=== PATIENT | female | born 1995 | race Caucasian/White ===

== ENCOUNTER 2019-08-16 09:55 | Emergency (ER) | payer OTHER ==
[2019-08-16 10:09] VITALS: BP 102/68; PULSE 86; TEMP 98.2; BMI 18.8
--- NOTE | 2019-08-16 11:12 | PDOC ---
History of Present Illness - General Chief Complaint: Nasal Bleeding Stated Complaint: NOSE BLEED Time Seen by Provider: 08/16/19 10:07 Past History - Past Medical History Allergies/Adverse Reactions: Allergies Allergy/AdvReac Type Severity Reaction Status Date / Time No Known Allergies Allergy Verified 08/16/19 10:38 Home Medications: Ambulatory Orders NK [No Known Home Medication] 08/16/19 Asthma: No Cancer: No Cardiac Disorders: No COPD: No Diabetes: No HTN: No Seizures: No Thyroid Disease: No - Immunization History Immunization Up to Date: Yes - Psycho Social/Smoking Cessation Hx Smoking History: Never smoked Have you smoked in the past 12 months: No Information on smoking cessation initiated: No Hx Alcohol Use: No Drug/Substance Use Hx: No Substance Use Type: None Hx Substance Use Treatment: No *Physical Exam - Vital Signs Last Vital Signs Temp Pulse Resp BP Pulse Ox 98.2 F 86 18 102/68 97 08/16/19 10:05 08/16/19 10:05 08/16/19 10:05 08/16/19 10:05 08/16/19 10:05 Discharge - Discharge Information Problems reviewed: Yes Clinical Impression/Diagnosis: Nasal bleeding Condition: Good Disposition: HOME - Admission No - Follow up/Referral Referrals: Jesus Brenner II, DO [Primary Care Provider] - Reynaldo Treviño MD [Staff Physician] - Mark Patterson MD [Staff Physician] - - Patient Discharge Instructions Patient Printed Discharge Instructions: DI for Nosebleed Additional Instructions: Hoy te vieron en la julien de emergencias por sangrado de nariz. No est sangrando activamente en lillian momento. Recomiendo hacer un seguimiento con un otorrinolaringlogo. La informacin se proporciona a continuacin. Pellizque cook nariz muy alma carolyn 5-10 minutos si tiene la hemorragia nasal. Regrese a la julien de emergencias si tiene sangrado abundante, est usando marni caja completa de pauelos, el sangrado no se detiene incluso si se est pellizcando la nariz o si se desarrolla algn sntoma nuevo o preocupante. Georgi You were seen in the emergency room today for nose bleed. It is not actively bleeding at this time. I recommend following up with an ENT doctor. Information is provided below. Pinch your nose very hard for 5-10 minutes if you have the nosebleed. Come back to the emergency room if you have heavy bleeding, are using a whole box of tissues, bleeding does not stop even if you are pinching your nose or if any new or concerning symptom develops. Thank you Print Language: MONGOLIAN - Post Discharge Activity
[2019-08-16] MEDS ORDERED: OXYMETAZOLINE 0.05% NASAL SOLUTION 15 ML BOTTLE NS ONE (11:26)
--- NOTE | 2019-08-16 11:41 | PDOC ---
Attending Attestation - Resident Resident Name: TootieMaria D - ED Attending Attestation I have performed the following: I have examined & evaluated the patient, The case was reviewed & discussed with the resident, I agree w/resident's findings & plan, Exceptions are as noted - HPI HPI: 08/16/19 11:25 24 yo F presenting with nasal bleeding Patient states she has had the symptoms for approximately 1 month Bleeding is minimal but intermittent and persistent She was seen by her primary care physician who prescribed her nasal spray Despite using that she is noted persistent epistaxis No lightheadedness or dizziness No nasal trauma 08/16/19 11:41 - Physicial Exam PE: 08/16/19 11:25 GENERAL: The patient is in no acute distress. ENT: Ears normal, nares patent, oropharynx clear without exudates. Moist mucous membranes. Dried blood at the right nare, no active bleeding noted NECK: Normal range of motion, supple LUNGS: Breath sounds equal, clear to auscultation bilaterally. No wheezes, and no crackles. HEART:Regular rate and rhythm, normal S1 and S2 without murmur, rub or gallop. ABDOMEN: Soft, nontender, normoactive bowel sounds. EXTREMITIES: Normal range of motion, no edema. NEUROLOGICAL: Cranial nerves II through XII grossly intact. Normal speech. No focal neurological deficits. SKIN: Warm, Dry, normal turgor, no rashes or lesions noted. 08/16/19 11:42 - Medical Decision Making 08/16/19 11:41 No bleeding noted Patient be discharged home We will ask her to follow-up with ENT Return to the ER for any other concerns or complaint
== END 2019-08-16 11:47 | disposition home or self-care (01) ==
LOC: JER 09:55
DX: R04.0 Epistaxis (principal)
CPT/HCPCS: 99281-25

== ENCOUNTER 2022-01-16 04:20 | Inpatient (IN) | payer OTHER ==
[2022-01-16] MEDS: ELECTROLYTE-148 SOLN 1,000 ML IV SCH ×2 (05:35→07:35)
[2022-01-16 06:01] LABS: BASO % 0.5 % (0-2.0); HEMATOCRIT 38.6 % (32.4-45.2); HEMOGLOBIN 12.9 GM/dL (10.7-15.3); LYMPH % 13.8 % (8-40); MCH 31.1 pg (25.7-33.7); MCHC 33.4 g/dl (32.0-36.0); MEAN CELL VOLUME 93.2 fl (80-96); MEAN PLT VOLUME 10.8 fl (7.5-11.1); MONO % 8.3 % (3.8-10.2); NEUT % 76.4 % (42.8-82.8); PLATELET COUNT 144 10^3/uL (134-434); RBC 4.14 M/mm3 (3.60-5.2); RDW 14.4 % (11.6-15.6)
[2022-01-16 06:08] LABS: INR 0.94 (0.83-1.09); PROTHROMBIN TIME (PATIENT) 10.8 SEC (9.7-13.0)
[2022-01-16 06:11] LABS: ACTIVATED PTT 28.8 SECONDS (25.2-36.5)
[2022-01-16 06:13] VITALS: BMI 28.0
[2022-01-16 06:20] LABS: CALCIUM 8.8 mg/dL (8.5-10.1)
[2022-01-16 06:21] LABS: BLOOD UREA NITROGEN 10.7 mg/dL (7-18)
[2022-01-16 06:24] LABS: CREATININE 0.5 mg/dL (0.55-1.3)
[2022-01-16] MEDS ORDERED: FENTANYL/BUPIVACAINE/NS/PF - PCEA - 50 ML DISP.SYRIN EP ONE (07:09)
[2022-01-16] MEDS ORDERED: OXYTOCIN 20 UNITS in 0.9% NS 20 UNIT/1,000 ML INFUS.BAG IV ONE (07:45)
[2022-01-16] MEDS ORDERED: IBUPROFEN 800 MG/8 ML IJ IVPB ONE (08:07)
[2022-01-16] MEDS ORDERED: BENZOCAINE 28 GM HEMORRHOIDAL OINTMENT TP PRN (08:08)
[2022-01-16] MEDS ORDERED: ACETAMINOPHEN 325 MG TABLET (FP) PO PRN (08:08)
[2022-01-16] MEDS ORDERED: BENZOCAINE 20% 57 GM BOTTLE TP PRN (08:08)
[2022-01-16] MEDS ORDERED: BISACODYL 10 MG SUPP.RECT RC PRN (08:08)
[2022-01-16] MEDS ORDERED: METHYLERGONOVINE MALEATE 0.2 MG/1 ML AMP IM PRN (08:08)
[2022-01-16] MEDS ORDERED: WITCH HAZEL 50% (TUCKS) 40 PAD/JAR PAD TP PRN (08:08)
[2022-01-16] MEDS ORDERED: OXYTOCIN 20 UNITS in 0.9% NS 20 UNIT/1,000 ML INFUS.BAG IV SCH (08:15)
[2022-01-16] MEDS: PRENATAL VITAMINS W/ FOLIC ACID TABLET (FP) PO SCH (10:27)
[2022-01-16] MEDS: IBUPROFEN 600 MG TABLET (FP) PO PRN (21:14)
[2022-01-17 08:05] LABS: BASO % 0.4 % (0-2.0); EOS % 0.8 % (0-4.5); HEMATOCRIT 33.7 % (32.4-45.2); HEMOGLOBIN 11.4 GM/dL (10.7-15.3); MCH 31.2 pg (25.7-33.7); MCHC 33.7 g/dl (32.0-36.0); MEAN CELL VOLUME 92.5 fl (80-96); MEAN PLT VOLUME 10.4 fl (7.5-11.1); MONO % 6.8 % (3.8-10.2); PLATELET COUNT 134 10^3/uL (134-434); RBC 3.65 M/mm3 (3.60-5.2); RDW 14.3 % (11.6-15.6); WHITE BLOOD COUNT 11.2 K/mm3 (4.0-10.0)
[2022-01-17] MEDS: PRENATAL VITAMINS W/ FOLIC ACID TABLET (FP) PO SCH (09:40)
[2022-01-17] MEDS ORDERED: DIPHTH,PERTUSS(ACELL),TET 0.5 ML DISP.SYRIN IM ONE (10:00)
[2022-01-17] MEDS ORDERED: FLU VACC QS2021-22(6MOS UP)/PF 60 MCG/0.5 ML SYRINGE IM ONE (10:00)
[2022-01-17] MEDS: IBUPROFEN 600 MG TABLET (FP) PO PRN (20:20)
[2022-01-17] MEDS ORDERED: SENNOSIDES/DOCUSATE COMBO (SENNA PLUS) TABLET (UD) PO PRN (22:00)
[2022-01-18] MEDS: IBUPROFEN 600 MG TABLET (FP) PO PRN (05:56)
[2022-01-18] MEDS: PRENATAL VITAMINS W/ FOLIC ACID TABLET (FP) PO SCH (09:15)
[2022-01-18 10:39] VITALS: BP 101/67; PULSE 80; TEMP 98
== END 2022-01-18 12:20 | disposition home or self-care (01) | DRG 560 ==
LOC: JDEL 04:20 → JLDR 04:55 → J3W 09:15
PROVIDERS: ADMIT Obstetrics & Gynecology; ATTEND Obstetrics & Gynecology
PROC: 0HQ9XZZ Repair Perineum Skin, External Approach (ICD-10-PCS; principal; 2022-01-16)
PROC: 10E0XZZ Delivery of Products of Conception, External Approach (ICD-10-PCS; 2022-01-16)
DX: O70.0 First degree perineal laceration during delivery (principal); Z3A.39 39 weeks gestation of pregnancy; Z37.0 Single live birth
CPT/HCPCS: 36415; 59409; 80048; 85025; 85610; 85730; 86780; 86850; 86900; 86901; 90686; 90715; C9803-CS; G0008; U0003; U0005